=== PATIENT | male | born 1965 | race Caucasian/White ===

== ENCOUNTER → 2016-06-04 | Outpatient (CLI) | payer OTHER ==
[~2016-06-04] MED LIST: BACTRIM DS1 TAB PO; FLOMAX0.4 MG PO; HYGROTON25 MG PO; LEVOFLOXACIN500 MG PO; MULTI-DAY VITA1 EACH PO; NORCO 5-325 MG1 TAB PO; TYLENOL WITH C1 EACH PO; TYLENOL/COD#31 TAB PO; VITAMIN B-12500 MCG PO
[2016-06-04 10:36] LABS: ALBUMIN 3.8 gm/dL (3.5-5.0); ANION GAP 11.7 (10.0-19.0); CALCIUM 8.6 mg/dL (8.5-10.5); CREATININE 1.6 mg/dL (0.6-1.3); POTASSIUM 3.7 mMol/L (3.7-5.1); TOTAL BILIRUBIN 0.5 mg/dL (0.0-1.5); TOTAL PROTEIN 7.1 g/dL (6.0-8.4)
== END | disposition disaster alternative care site (69) ==
LOC: GRAD 05-28 10:00
PROVIDERS: Internal Medicine Hematology & Oncology
DX: C20 Malignant neoplasm of rectum (principal); C78.30 Secondary malignant neoplasm of unspecified respiratory organ; C79.10 Secondary malignant neoplasm of unspecified urinary organs; K43.9 Ventral hernia without obstruction or gangrene; R22.2 Localized swelling, mass and lump, trunk

== ENCOUNTER → 2016-10-19 | Outpatient (CLI) | payer OTHER | END | disposition disaster alternative care site (69) | LOC: GRAD 11:29 | DX: C20 Malignant neoplasm of rectum (principal); C79.10 Secondary malignant neoplasm of unspecified urinary organs; C78.30 Secondary malignant neoplasm of unspecified respiratory organ; D70.1 Agranulocytosis secondary to cancer chemotherapy; R91.8 Other nonspecific abnormal finding of lung field | CPT/HCPCS: Q9967 ==